=== PATIENT | female | born 1950 | race Caucasian/White ===

== ENCOUNTER 2017-01-23 17:31 | Emergency (ER) | payer MEDICAID, OTHER ==
[~2017-01-23] VITALS: Ht 157.5 cm; Wt 62.4 kg
[~2017-01-23 17:31] MED LIST: LORA10TA3 PO; OMEP40CA6 PO
[2017-01-23 17:34] VITALS: Ht 157.5 cm; Wt 62.4 kg
[2017-01-23] MEDS ORDERED: SOD CHLORIDE 0.9% 1,000 ML IV STA (18:20)
[2017-01-23] MEDS ORDERED: KETOROLAC 30 MG INJ IV STA (18:20)
[2017-01-23] MEDS ORDERED: ONDANSETRON 4 MG INJ IV STA (18:20)
--- NOTE | 2017-01-23 18:20 | ERD ---
ER Documentation Chief Complaint Date/Time DATE: 01/23/17 TIME: 18:17 Chief Complaint RT LOWER BAD PAIN , BACK PAIN , BODY ACHE X 3 DAYS HPI Patient is a 66-year-old female who reports right lower quadrant pain for the last 3 days. She also reports diffuse body aches. She denies any fever, nausea , vomiting, diarrhea, dysuria, or hematuria. She denies any abdominal trauma or back trauma. As an aside she mentions left knee pain which has been present for the last several months. She would also like this evaluated while she is here. She states the pain is been gradual in onset and worsened over the last 3 days. She says it is worse when she ambulates. It is better when she sits down and relaxes. She has never experienced this pain before. The remainder of his systems are negative. ROS All systems reviewed and are negative except as per history of present illness. Medications Home Meds Reported Medications Loratadine* (Loratadine*) 10 Mg Tablet, 10 MG PO DAILY, TAB 10/30/15 Discontinued Reported Medications Omeprazole* (Omeprazole*) 40 Mg Capsule.dr, 40 MG PO DAILY, CAP 10/30/15 Allergies Allergies: Uncoded Allergies: anesthesia (Adverse Reaction, Unknown, 10/30/15) pt unsure of med given during delivery. diff. catching breath and rash. pt reports having 2 surgeries since without any reactions PMhx/Soc History of Surgery: Yes (D&C hysterectomy) Anesthesia Reaction: Yes (unsure over 30 years) Hx Neurological Disorder: No Hx Respiratory Disorders: Yes (hx bronchitis) Hx Cardiac Disorders: No Hx Psychiatric Problems: No Hx Miscellaneous Medical Probl: No Hx Alcohol Use: No Hx Substance Use: No Hx Tobacco Use: No Smoking Status: Never smoker FmHx Family History: No diabetes Physical Exam Vitals Vital Signs Date Time Temp Pulse Resp B/P Pulse Ox O2 Delivery O2 Flow Rate FiO2 01/23/17 18:02 98.9 80 20 137/89 100 Room Air 01/23/17 17:58 98.9 01/23/17 17:34 100.0 86 18 144/65 100 Physical Exam Const: [] Well-developed well-nourished female sitting in bed in no acute distress Head: Atraumatic normocephalic Eyes: Normal Conjunctiva ENT: Normal External Ears, Nose and Mouth. Neck: Full range of motion..~ No meningismus. Resp: Clear to auscultation bilaterally Cardio: Regular rate and rhythm, no murmurs Abd: Soft, mild tenderness to palpation in the right lower quadrant without any masses rebound or guarding, non distended. Normal bowel sounds Skin: No petechiae or rashes Back: No midline or flank tenderness Ext: No cyanosis, or edema, patient has full range of motion of her left knee , she has some mild osteoarthritic changes noted Neur: Awake and alert, oriented 3, GCS of 15, nonfocal Psych: Normal Mood and Affect Result Diagram: 01/23/17182901/23/171829 Results 24 hrs Laboratory Tests Test 01/23/17 18:30 Alanine Aminotransferase (ALT/SGPT) 24IU/L Albumin 4.1g/dl Albumin/Globulin Ratio 1.28 Alkaline Phosphatase 76IU/L Anion Gap 17 Aspartate Amino Transf (AST/SGOT) 18IU/L Basophils # 0.010^3/ul Basophils % 0.2% Blood Urea Nitrogen 14mg/dl Calcium Level 9.2mg/dl Carbon Dioxide Level 26mmol/L Chloride Level 105mmol/L Creatinine 0.67mg/dl Direct Bilirubin 0.00mg/dl Eosinophils # 0.010^3/ul Eosinophils % 0.2% Globulin 3.20g/dl Glucose Level 98mg/dl Hematocrit 34.5% Hemoglobin 11.5g/dl Indirect Bilirubin 0.5mg/dl Lipase 49U/L Lymphocytes # 1.510^3/ul Lymphocytes % 14.2% Mean Corpuscular Hemoglobin 29.9pg Mean Corpuscular Hemoglobin Concent 33.3g/dl Mean Corpuscular Volume 89.8fl Mean Platelet Volume 9.9fl Monocytes # 0.710^3/ul Monocytes % 6.1% Neutrophils # 8.510^3/ul Neutrophils % 79.1% Nucleated Red Blood Cells # 0.010^3/ul Nucleated Red Blood Cells % 0.0/100WBC Platelet Count 03460^3/UL Potassium Level 3.9mmol/L Red Blood Count 3.8410^6/ul Red Cell Distribution Width 13.2% Sodium Level 144mmol/L Total Bilirubin 0.5mg/dl Total Protein 7.3g/dl Urine Bacteria FEW Urine Bilirubin 1+ Urine Clarity CLEAR Urine Color YELLOW Urine Epithelial Cells FEW Urine Glucose NEGATIVE% Urine Hemoglobin 3+ Urine Ictotest NEGATIVE Urine Ketones 15 Urine Leukocyte Esterase NEGATIVE Urine Microscopic RBC 5-10/HPF Urine Microscopic WBC 0-2/HPF Urine Nitrite NEGATIVE Urine Specific Cassandra >=1.030 Urine Total Protein TRACE Urine Urobilinogen 0.2 E.U./dL Urine pH 5.5 White Blood Count 10.810^3/ul Current Medications Medications (Trade) Dose Ordered Sig/Ryan Route PRN Reason Start Time Stop Time Status Last Admin Dose Admin Sodium Chloride (NS) 1,000 ml @ 1,000 mls/hr Q1H STAT IV 01/23/17 18:20 01/23/17 19:19 DC 01/23/17 18:52 Ondansetron HCl (Zofran Inj) 4 mg ONCE STAT IV 01/23/17 18:20 01/23/17 18:23 DC 01/23/17 18:52 Ketorolac Tromethamine 30 mg 30 mg ONCE STAT IV 01/23/17 18:20 01/23/17 18:23 DC 01/23/17 18:52 Levofloxacin/ Dextrose (Levaquin 750 Mg/ D5W 150 ml (Pmx)) 150 ml @ 100 mls/hr ONCE ONCE IVPB 01/23/17 21:00 01/23/17 22:29 Procedures/MDM differential includes but is not limited to nonspecific abdominal pain, ureterolithiasis, pyelonephritis, urinary tract infection, bowel obstruction, ovarian cyst, osteoarthritic pain CT of the abdomen and pelvis demonstrates a right middle lobe infiltrate consistent with pneumonia. She is not have any acute intra-abdominal process. X-ray of the left knee shows osteoarthritis Chest x-ray demonstrates right middle lobe infiltrate consistent with pneumonia Patient appears stable at this time for discharge home with outpatient follow- up. Her test results have been discussed with her and her son. They have no questions at the time of discharge. Departure Diagnosis: Primary Impression: Pneumonia Pneumonia type: due to unspecified organism Laterality: right Lung location : middle lobe of lung Qualified Code: J18.9 - Pneumonia of right middle lobe due to infectious organism Additional Impressions: Abdominal pain Abdominal location: right lower quadrant Qualified Code: R10.31 - Right lower quadrant abdominal pain Arthritis Condition: Stable Patient Instructions: Abdominal Pain, Osteoarthritis, Pneumonia (Adult) Additional Instructions: Please schedule a follow-up appointment with your primary care doctor in the next 1-2 weeks. They may want to repeat your chest film to make sure the pneumonia is completely resolving. Activity as is comfortable for you. Your left knee will have days where it hurts more and days where it hurts less as you have arthritis in the knee. You may want to follow-up with an orthopedic doctor at your convenience. Return to the emergency department for any new or worsening symptoms. RENA HUERTA Jan 23, 2017 18:20
[2017-01-23 18:36] LABS: ADD SCAN DIFF NO
[2017-01-23 18:41] LABS: BASOPHILS % 0.2 % (0.0-2.0); EOSINOPHILS % 0.2 % (0.0-7.0); HEMATOCRIT 34.5 % (37.0-47.0); HEMOGLOBIN 11.5 g/dl (12.0-16.0); LYMPHOCYTES # 1.5 10^3/ul (0.8-2.9); LYMPHOCYTES % 14.2 % (15.0-51.0); MEAN CORPUSCULAR HEMOGLOBIN 29.9 pg (29.0-33.0); MEAN CORPUSCULAR HGB CONC 33.3 g/dl (32.0-37.0); MEAN CORPUSCULAR VOLUME 89.8 fl (82.0-101.0); MEAN PLATELET VOLUME 9.9 fl (7.4-10.4); MONOCYTE # 0.7 10^3/ul (0.3-0.9); MONOCYTES % 6.1 % (0.0-11.0); NEUTROPHIL # 8.5 10^3/ul (1.6-7.5); NEUTROPHILS % 79.1 % (39.0-77.0); PLATELET COUNT 267 10^3/UL (140-415); RED BLOOD COUNT 3.84 10^6/ul (4.20-5.40); RED CELL DISTRIBUTION WIDTH 13.2 % (11.5-14.5); WHITE BLOOD COUNT 10.8 10^3/ul (4.8-10.8)
[2017-01-23 18:49] LABS: ADD UMIC YES; URINE BILIRUBIN (Dip) 1+ (NEGATIVE); URINE BLOOD (Dip) 3+ (NEGATIVE); URINE COLOR YELLOW (YELLOW); URINE GLUCOSE (Dip) NEGATIVE (NEGATIVE); URINE KETONES (Dip) 15 (NEGATIVE); URINE LEUKOCYTE ESTERASE (Dip) NEGATIVE (NEGATIVE); URINE NITRITE (Dip) NEGATIVE (NEGATIVE); URINE TOTAL PROTEIN (Dip) TRACE (NEGATIVE); URINE UROBILINOGEN (Dip) 0.2 E.U./dL (0.1-1.0)
[2017-01-23 18:51] LABS: ALBUMIN 4.1 g/dl (3.3-4.9)
[2017-01-23 18:52] LABS: POTASSIUM 3.9 mmol/L (3.5-5.1)
[2017-01-23 18:54] LABS: ALBUMIN/GLOBULIN RATIO 1.28; BILIRUBIN,INDIRECT 0.5 mg/dl (0-1.1); BILIRUBIN,TOTAL 0.5 mg/dl (0.2-1.3); CREATININE 0.67 mg/dl (0.44-1.00); TOTAL PROTEIN 7.3 g/dl (6.1-8.1)
[2017-01-23 18:55] LABS: CALCIUM 9.2 mg/dl (8.4-10.2)
[2017-01-23 19:03] LABS: BACTERIA,URINE FEW
--- NOTE | 2017-01-23 19:05 | RADRPT ---
PROCEDURE: XR Knee. CLINICAL INDICATION: Knee pain TECHNIQUE: Three views of the left knee are available for review. COMPARISON: None available FINDINGS: There is mild to moderate narrowing of the lateral femoral tibial compartment with marginal osteophy te formation and subchondral sclerosis. The medial and patellofemoral compartments are maintained. There is no acute osseous abnormality. Bone mineral density appears decreased. A joint effusion i s present. IMPRESSION: 1. Mild to moderate lateral femorotibial compartment arthrosis. 2. No acute osseous abnormality. 3. Joint effusion. RPTAT: PP .Rory Razo MD, MD Date Time Electronically viewed and signed by .Rory Razo MD, on 01/23/2017 19:04 .d/
[2017-01-23 19:07] LABS: ICTOTEST NEGATIVE (NEGATIVE)
--- NOTE | 2017-01-23 20:16 | RADRPT ---
PROCEDURE: CT abdomen and pelvis without contrast. CLINICAL INDICATION: Abdomen pain TECHNIQUE: CT scan of the abdomen and pelvis without contrast was performed on a multislice CT [facility] utilizing axial imaging from the lung bases through the pubis symphysis. The patient was scann ed without intravenous contrast. Sagittal and coronal reformatted images were made. The CTDIvol is 7.25 mGy and the DLP is 361.16 mGycm. One of the following 3 dose reduction techniques were used during this CT examination: automated exp osure control; adjustment of the mA and /or kV according to patient size; or use of iterative recons truciton technique. COMPARISON: None. FINDINGS: The lung bases are remarkable for consolidation in the right middle lobe. Recommend follow-up until resolution. A right lower lobe 3 mm calcified granuloma is present compatible with prior exposure gr anulomatous disease. The heart size is normal. Mild vascular calcifications are present of the cor onary arteries. A small hiatal hernia is present. The visualized liver, spleen, pancreas, and gall bladder are normal. The bilateral adrenal glands are normal. The bilateral kidneys are normal. No evidence for hydroureteronephrosis or nephroureterolithiasis is present. The liver, gallbladder, pancreas, spleen, adrenal glands, and kidneys are all normal in appearance o n this noncontrast examination. The visualized bowel is nonobstructive. No evidence for diverticulo sis, diverticulitis or appendicitis is present. No pelvic mass, lymphadenopathy, or free fluid is seen. The appearance of status post hysterectomy changes are noted. An air distended rectum is noted. There is no evidence of free air. No aneurysm al dilatation of the aorta is evident. The surrounding osseous structures are remarkable for degenerative changes the bilateral sacroiliac joints and degenerative spondylosis.. IMPRESSION: 1. Right middle lobe pneumonia. Recommend follow-up until resolution. 2. Right 3 mm lower lobe calcified granuloma 3. Small hiatal hernia 4. Mild atherosclerotic vascular disease 5. No evidence for acute intra-abdominal or pelvic pathology. A call report was made to BRADLEY CHASE at 01/23/2017 8:15:53 PM following the completion of the examina tion by the undersigned. RPTAT: HDC .Maddison Tejada MD, MD Date Time Electronically viewed and signed by .Maddison Tejada MD, MD on 01/23/2017 20:16 .C/
[2017-01-23] MEDS ORDERED: LEVOFLOXACIN 750MG/D5W (PMX) 150 ML IVPB ONE (21:00)
--- NOTE | 2017-01-23 21:23 | RADRPT ---
PROCEDURE: XR Chest. CLINICAL INDICATION: Shortness of breath. Pneumonia TECHNIQUE: PA and lateral view of the chest were obtained COMPARISON: None FINDINGS: The cardiomediastinal silhouette is within normal limits. Patchy air space disease in the right mid dle lobe distribution is seen. The remaining lungs and pleural spaces are clear. The soft tissues a nd osseous structures are unremarkable. IMPRESSION: Right middle lobe air space disease which may represent an infiltrate. Continued follow-up to compl ete resolution is recommended. RPTAT: HPNM Physician Sarah Date Time Electronically viewed and signed by Physician Sarah on 01/23/2017 21:22 /
[2017-01-23] MEDS ORDERED: LEVO750T8 PO (21:43)
[2017-01-23] MEDS ORDERED: BENZ100C70 PO (21:44)
[2017-01-23] MEDS ORDERED: HYDR473S12 PO (21:44)
[2017-01-23] MEDS ORDERED: ETOD300C26 PO (21:45)
[2017-01-23 23:38] VITALS: BP 127/72; PULSE 62; RESP 20; TEMP 98.6
== END 2017-01-23 23:38 | disposition home or self-care (01) ==
LOC: E/R 17:31
DX: J18.9 Pneumonia, unspecified organism (principal); M19.90 Unspecified osteoarthritis, unspecified site
CPT/HCPCS: 36415; 71020; 73562; 74176; 80053; 81001; 83690; 85025; 96374; 96375; J1885; J1956; J2405; J7030; Z7502; 81003